=== PATIENT | male | born 1965 | race Caucasian/White ===

== ENCOUNTER 2018-03-14 12:12 | Emergency (ER) | payer OTHER ==
[~2018-03-14] VITALS: Ht 177.8 cm; Wt 120.7 kg
[2018-03-14] MEDS ORDERED: GLUCOPHAGE XR500 MG PO (12:33)
[2018-03-14] MEDS ORDERED: TARKA ER 2-2401 EACH (12:34)
[2018-03-14] MEDS ORDERED: CRESTOR5 MG PO (12:34)
[2018-03-14] MEDS ORDERED: NORFLEX100MG PO (15:05)
[2018-03-14] MEDS ORDERED: KETO10TA2 PO (15:05)
== END 2018-03-14 15:22 | disposition home or self-care (01) ==
LOC: ER 12:12
DX: M54.5 Low back pain (principal)

== ENCOUNTER 2023-03-02 10:12 | Outpatient (CLI) | payer OTHER ==
[~2023-03-02 10:12] MED LIST: CRESTOR5 MG PO; GLUCOPHAGE XR500 MG PO; KETO10TA2 PO; NORFLEX100MG PO; TARKA ER 2-2401 EACH
== END 2023-03-02 10:25 | disposition home or self-care (01) ==
LOC: RAD 10:12
PROVIDERS: ATTEND Internal Medicine Pulmonary Disease
DX: J44.1 Chronic obstructive pulmonary disease with (acute) exacerbation (principal)

== ENCOUNTER → 2023-03-16 09:14 | Outpatient (CLI) | payer OTHER | END | disposition home or self-care (01) | LOC: NUCLEAR 08:00 | PROVIDERS: ATTEND Internal Medicine Pulmonary Disease | DX: I27.20 Pulmonary hypertension, unspecified (principal) ==

== ENCOUNTER 2024-02-14 07:10 | Outpatient (CLI) | payer OTHER | END 2024-02-14 07:19 | disposition home or self-care (01) | LOC: SONOGRAMA 07:10 | PROVIDERS: ATTEND Internal Medicine Gastroenterology | DX: R10.9 Unspecified abdominal pain (principal) ==